=== PATIENT | male | born 1935 ===

== ENCOUNTER 2024-02-07 06:00 | Outpatient (RCR) | payer MEDICARE, SELFPAY | END 2024-03-04 23:59 | disposition home or self-care (01) | LOC: GPT 06:00 | PROVIDERS: Visit Provider Family Medicine | DX: M62.81 Muscle weakness (generalized) (principal); R42 Dizziness and giddiness | CPT/HCPCS: 97110; 97112; 97161; 97530 ==

== ENCOUNTER 2024-03-05 06:00 | Outpatient (RCR) | payer MEDICARE, SELFPAY | END 2024-03-20 23:59 | disposition home or self-care (01) | LOC: GPT 06:00 | PROVIDERS: Visit Provider Family Medicine | DX: R53.1 Weakness (principal); R42 Dizziness and giddiness | CPT/HCPCS: 97110; 97112 ==